=== PATIENT | female | born 1965 | race Hispanic/Latino ===

== ENCOUNTER 2017-09-04 06:53 | Emergency (ER) | payer BC ==
[2017-09-04] MEDS ORDERED: Ibuprofen 800 MG TAB ONE (07:23)
--- NOTE | 2017-09-04 08:36 | RAD ---
2 VIEW CHEST: Date: 09/04/17 INDICATION: Cough with right chest pain. FINDINGS: There is no consolidation or acute pneumothorax. Cardiac silhouette is within normal limits of size. Osseous structures are nonacute in appearance. IMPRESSION: No focal consolidation. POS: [facility]
== END 2017-09-04 08:00 | disposition home or self-care (01) ==
LOC: SCSER 06:53
DX: M94.0 Chondrocostal junction syndrome [Tietze] (principal); J04.0 Acute laryngitis
CPT/HCPCS: 71046

== ENCOUNTER 2019-02-02 10:40 | Outpatient (CLI) | payer BC ==
--- NOTE | 2019-02-02 11:45 | MMO ---
Bilateral MAMMO Bilat Screen [facility]. CLINICAL HISTORY: Patient is 53 years old and is seen for screening. The patient has the following family history of breast cancer: mother, at age 60. The patient has no personal history of cancer. The patient has a history of Breast reduction in 2008. VIEWS: The views performed were: bilateral craniocaudal with tomosynthesis and bilateral mediolateral oblique with tomosynthesis. FILMS COMPARED: The present examination has been compared to prior imaging studies performed at [facility] on 06/19/2010, 04/27/2014 and 07/15/2016. MAMMOGRAM FINDINGS: There are scattered fibroglandular densities. There are stable benign appearing calcifications seen in both breasts. There are no suspicious masses, suspicious calcifications, or new areas of architectural distortion. IMPRESSION: THERE IS NO MAMMOGRAPHIC EVIDENCE OF MALIGNANCY. A ROUTINE FOLLOW-UP MAMMOGRAM IN 1 YEAR IS RECOMMENDED. THE RESULTS OF THIS EXAM WERE SENT TO THE PATIENT. ACR BI-RADS Category 2 - Benign finding MAMMOGRAPHY NOTE: 1. A negative mammogram report should not delay a biopsy if a dominant of clinically suspicious mass is present. 2. Approximately 10% to 15% of breast cancers are not detected by mammography. 3. Adenosis and dense breasts may obscure an underlying neoplasm. Reported by: PERLA SUMMERS MD Electonically Signed: [id number]
== END 2019-02-02 10:41 | disposition home or self-care (01) ==
LOC: BICMAMMO 10:40
PROVIDERS: ATTEND Nurse Practitioner Family
DX: Z12.31 Encounter for screening mammogram for malignant neoplasm of breast (principal); Z80.3 Family history of malignant neoplasm of breast; Z98.890 Other specified postprocedural states
CPT/HCPCS: 77063; 77067

== ENCOUNTER 2020-02-06 10:31 | Outpatient (CLI) | payer BC ==
--- NOTE | 2020-02-06 11:18 | MMO ---
Bilateral MAMMO Bilat Screen [facility]. CLINICAL HISTORY: Patient is 54 years old and is seen for screening. The patient has the following family history of breast cancer: mother, at age 60. The patient has no personal history of cancer. The patient has a history of Breast reduction in 2008. VIEWS: The views performed were: bilateral craniocaudal with tomosynthesis and bilateral mediolateral oblique with tomosynthesis. FILMS COMPARED: The present examination has been compared to prior imaging studies performed at [facility] on 06/19/2010, 04/27/2014, 07/15/2016 and 02/02/2019. This study has been interpreted with the assistance of computer-aided detection. MAMMOGRAM FINDINGS: There are scattered fibroglandular densities. There is a new mass measuring 5 millimeters seen in the left breast at 3 o'clock. In the right breast, there are no suspicious masses, calcifications or areas of architectural distortion. IMPRESSION: NEW MASS IN THE LEFT BREAST REQUIRES ADDITIONAL EVALUATION. AN ULTRASOUND EXAM IS RECOMMENDED. THE RESULTS OF THIS EXAM WERE SENT TO THE PATIENT. ACR BI-RADS Category 0 - Incomplete: Need additional imaging evaluation. [facility] will notify the patient of the need for additional imaging services. MAMMOGRAPHY NOTE: 1. A negative mammogram report should not delay a biopsy if a dominant of clinically suspicious mass is present. 2. Approximately 10% to 15% of breast cancers are not detected by mammography. 3. Adenosis and dense breasts may obscure an underlying neoplasm. Reported by: JULIO LILLY MD Electonically Signed: [id number]
--- NOTE | 2020-02-06 16:01 | ULT ---
LEFT BREAST ULTRASOUND: Date: 02/06/2020 HISTORY: New 5mm nodular density seen in the left breast 3 o'clock position. FINDINGS: Real-time imaging of the area of concern shows a small, septated cyst measuring 5.0 mm, corresponding to size and location of the mammographic finding. IMPRESSION: BI-RADS Category 2 - Benign findings. Routine mammographic follow-up recommended.
== END 2020-02-06 10:32 | disposition home or self-care (01) ==
LOC: BICMAMMO 10:31
PROVIDERS: ATTEND Student in an Organized Health Care Education/Training Program
DX: Z12.31 Encounter for screening mammogram for malignant neoplasm of breast (principal); N63.21 Unspecified lump in the left breast, upper outer quadrant; Z98.890 Other specified postprocedural states; Z80.3 Family history of malignant neoplasm of breast
CPT/HCPCS: 76642; 77063; 77067

== ENCOUNTER 2021-05-16 15:32 | Outpatient (CLI) | payer BC | END 2021-05-16 15:33 | disposition home or self-care (01) | LOC: BICMAMMO 15:32 | PROVIDERS: ATTEND Student in an Organized Health Care Education/Training Program | DX: Z12.31 Encounter for screening mammogram for malignant neoplasm of breast (principal); Z98.890 Other specified postprocedural states; Z80.3 Family history of malignant neoplasm of breast | CPT/HCPCS: 77063; 77067 ==

== ENCOUNTER 2023-02-06 08:40 | Outpatient (CLI) | payer BC | END 2023-02-06 08:41 | disposition home or self-care (01) | LOC: BICMAMMO 08:40 | PROVIDERS: ATTEND Student in an Organized Health Care Education/Training Program | DX: Z12.31 Encounter for screening mammogram for malignant neoplasm of breast (principal); Z80.3 Family history of malignant neoplasm of breast; Z98.890 Other specified postprocedural states | CPT/HCPCS: 77063; 77067 ==